=== PATIENT | male | born 1955 | race Caucasian/White ===

== ENCOUNTER 2017-06-12 15:56 | Inpatient (IN) | payer OTHER ==
[2017-06-12 17:14] LABS: BASO % 0.5 % (0.0-1.0); EOS # 0.1 10^3/uL (0.0-0.50); EOS % 1.6 % (0.0-3.0); HEMATOCRIT 46.7 % (42.0-52.0); HEMOGLOBIN 15.5 g/dl (14.0-18.0); IMMATURE GRANULOCYTE # 0.1 10^3/uL (0-0); IMMATURE GRANULOCYTE % 0.8 % (0-0); LYMPH # 1.1 10^3/uL (1.5-4.5); LYMPH % 15.4 % (24.0-44.0); MEAN CORPUSCULAR HEMOGLOBIN 29.8 pg (27.0-33.0); MEAN CORPUSCULAR HGB CONC 33.2 g/dl (32.0-36.5); MEAN CORPUSCULAR VOLUME 89.6 fl (80.0-96.0); MONO # 0.5 10^3/uL (0.0-0.8); MONO % 6.8 % (0.0-5.0); NEUTROPHILS # 5.5 10^3/uL (1.8-7.7); NEUTROPHILS % 74.9 % (36.0-66.0); PLATELET COUNT, AUTOMATED 219 10^3/uL (150-450); RED BLOOD COUNT 5.21 10^6/uL (4.30-6.10); RED CELL DISTRIBUTION WIDTH 12.8 % (11.5-14.5); WHITE BLOOD COUNT 7.4 10^3/uL (4.0-10.0)
[2017-06-12 17:20] LABS: INR 0.96; PROTHROMBIN TIME 12.9 SECONDS (12.4-14.5)
[2017-06-12 17:21] LABS: PARTIAL THROMBOPLASTIN TIME 28.2 SECONDS (26.8-37.9)
[2017-06-12 17:43] LABS: ANION GAP 5 MEQ/L (8-16); BLOOD UREA NITROGEN 21 MG/DL (7-18); CALCIUM LEVEL 9.2 MG/DL (8.8-10.2); CARBON DIOXIDE LEVEL 30 MEQ/L (21-32); CHLORIDE LEVEL 103 MEQ/L (98-107); CREATININE FOR GFR 0.81 MG/DL (0.70-1.30); GLOMERULAR FILTRATION RATE > 60.0 (>49); GLUCOSE, FASTING 280 MG/DL (70-100); POTASSIUM SERUM 4.4 MEQ/L (3.5-5.1); SODIUM LEVEL 138 MEQ/L (136-145)
[2017-06-12] MEDS: PIPERACILLIN/TAZOBACTAM SOD 3.375 GM in APPROPRIATE DILUENT 1 EA IV (18:28)
[2017-06-12] MEDS: METOPROLOL TART 12.5 MG PER 1/2 TAB PO (20:50)
[2017-06-12] MEDS: ATORVASTATIN 20 MG TAB PO (20:50)
[2017-06-12] MEDS: NORCO, ANEXSIA 5/325MG TABLET (HYDROcodone/ACETAMINOPHEN) PO (21:42)
[2017-06-12 22:19] LABS: BEDSIDE GLUCOSE 240 MG/DL (80-115)
[2017-06-13] MEDS: PIPERACILLIN/TAZOBACTAM SOD 3.375 GM in APPROPRIATE DILUENT 1 EA IV ×5 (00:52→23:55)
[2017-06-13] MEDS: NORCO, ANEXSIA 5/325MG TABLET (HYDROcodone/ACETAMINOPHEN) PO ×5 (06:20→23:55)
[2017-06-13] MEDS: CLOPIDOGREL 75 MG TAB PO (08:20)
[2017-06-13] MEDS: METOPROLOL TART 12.5 MG PER 1/2 TAB PO ×2 (08:20→19:49)
[2017-06-13] MEDS: ASPIRIN 81 MG ENTERIC TAB PO (08:20)
[2017-06-13] MEDS: glyBURIDE 5 MG TAB PO ×2 (08:21→17:48)
[2017-06-13] MEDS: OMEPRAZOLE 20 MG CAP PO (08:21)
[2017-06-13] MEDS: metFORMIN (GLUCOPHAGE) 1000 MG TABLET PO ×2 (08:21→17:47)
[2017-06-13] MEDS ORDERED: GLUCOSE 4 GM CHEW TABLET PO (14:00)
[2017-06-13] MEDS ORDERED: GLUCAGON FOR INJ 1 MG VIAL (J1610) SC (14:00)
[2017-06-13 17:05] LABS: BEDSIDE GLUCOSE 196 MG/DL (80-115)
[2017-06-13 17:05] LABS: BEDSIDE GLUCOSE 205 MG/DL (80-115)
[2017-06-13] MEDS: HumaLOG INSULIN (NovoLOG) PER UNIT SC ×2 (17:30→19:50)
[2017-06-13] MEDS: ATORVASTATIN 20 MG TAB PO (19:45)
[2017-06-14 02:38] LABS: BEDSIDE GLUCOSE 177 MG/DL (80-115)
[2017-06-14] MEDS: NORCO, ANEXSIA 5/325MG TABLET (HYDROcodone/ACETAMINOPHEN) PO ×5 (03:35→20:49)
[2017-06-14] MEDS: PIPERACILLIN/TAZOBACTAM SOD 3.375 GM in APPROPRIATE DILUENT 1 EA IV ×4 (05:34→23:38)
[2017-06-14] MEDS: HumaLOG INSULIN (NovoLOG) PER UNIT SC ×4 (07:30→20:10)
[2017-06-14] MEDS: metFORMIN (GLUCOPHAGE) 1000 MG TABLET PO ×2 (08:31→18:13)
[2017-06-14] MEDS: OMEPRAZOLE 20 MG CAP PO (08:31)
[2017-06-14] MEDS: METOPROLOL TART 12.5 MG PER 1/2 TAB PO ×2 (08:31→20:50)
[2017-06-14] MEDS: OMEGA-3 1050MG CAPSULE PO ×2 (08:31→20:47)
[2017-06-14] MEDS: CLOPIDOGREL 75 MG TAB PO (08:32)
[2017-06-14] MEDS: ASPIRIN 81 MG ENTERIC TAB PO (08:32)
[2017-06-14] MEDS: glyBURIDE 5 MG TAB PO ×2 (08:32→18:13)
[2017-06-14 11:39] LABS: BEDSIDE GLUCOSE 142 MG/DL (80-115)
[2017-06-14 17:09] LABS: BEDSIDE GLUCOSE 169 MG/DL (80-115)
[2017-06-14 20:36] LABS: BEDSIDE GLUCOSE 157 MG/DL (80-115)
[2017-06-14] MEDS: ATORVASTATIN 20 MG TAB PO (20:47)
[2017-06-15] MEDS: NORCO, ANEXSIA 5/325MG TABLET (HYDROcodone/ACETAMINOPHEN) PO ×6 (00:42→21:31)
[2017-06-15 04:59] LABS: BEDSIDE GLUCOSE 115 MG/DL (80-115)
[2017-06-15] MEDS: PIPERACILLIN/TAZOBACTAM SOD 3.375 GM in APPROPRIATE DILUENT 1 EA IV ×3 (05:33→17:02)
[2017-06-15] MEDS: metFORMIN (GLUCOPHAGE) 1000 MG TABLET PO ×2 (08:24→17:02)
[2017-06-15] MEDS: OMEGA-3 1050MG CAPSULE PO ×2 (08:24→20:34)
[2017-06-15] MEDS: OMEPRAZOLE 20 MG CAP PO (08:25)
[2017-06-15] MEDS: CLOPIDOGREL 75 MG TAB PO (08:25)
[2017-06-15] MEDS: ASPIRIN 81 MG ENTERIC TAB PO (08:25)
[2017-06-15] MEDS: METOPROLOL TART 12.5 MG PER 1/2 TAB PO ×2 (08:25→20:33)
[2017-06-15] MEDS: glyBURIDE 5 MG TAB PO ×2 (08:25→17:02)
[2017-06-15] MEDS: HumaLOG INSULIN (NovoLOG) PER UNIT SC ×4 (08:26→20:34)
[2017-06-15 14:32] LABS: HEMOGLOBIN 15.5 g/dl (14.0-18.0); MEAN CORPUSCULAR HEMOGLOBIN 29.2 pg (27.0-33.0); MEAN CORPUSCULAR VOLUME 88.7 fl (80.0-96.0); PLATELET COUNT, AUTOMATED 229 10^3/uL (150-450); RED CELL DISTRIBUTION WIDTH 12.6 % (11.5-14.5); WHITE BLOOD COUNT 6.7 10^3/uL (4.0-10.0)
[2017-06-15 14:51] LABS: ANION GAP 7 MEQ/L (8-16); BLOOD UREA NITROGEN 15 MG/DL (7-18); CARBON DIOXIDE LEVEL 30 MEQ/L (21-32); CHLORIDE LEVEL 101 MEQ/L (98-107); CREATININE FOR GFR 0.78 MG/DL (0.70-1.30); GLOMERULAR FILTRATION RATE > 60.0 (>49); GLUCOSE, FASTING 113 MG/DL (70-100); POTASSIUM SERUM 4.4 MEQ/L (3.5-5.1); SODIUM LEVEL 138 MEQ/L (136-145)
[2017-06-15 17:18] LABS: BEDSIDE GLUCOSE 163 MG/DL (80-115)
[2017-06-15] MEDS: ATORVASTATIN 20 MG TAB PO (20:33)
[2017-06-16] MEDS: PIPERACILLIN/TAZOBACTAM SOD 3.375 GM in APPROPRIATE DILUENT 1 EA IV ×3 (00:09→12:33)
[2017-06-16] MEDS: NORCO, ANEXSIA 5/325MG TABLET (HYDROcodone/ACETAMINOPHEN) PO ×2 (04:31→10:24)
[2017-06-16 05:32] LABS: BEDSIDE GLUCOSE 101 MG/DL (80-115)
[2017-06-16 05:32] LABS: BEDSIDE GLUCOSE 106 MG/DL (80-115)
[2017-06-16] MEDS ORDERED: ISOVUE-300 61% 50ML VIAL (Q9967) As Ordered (07:05)
[2017-06-16] MEDS: glyBURIDE 5 MG TAB PO (07:30)
[2017-06-16] MEDS: HumaLOG INSULIN (NovoLOG) PER UNIT SC ×2 (07:30→12:00)
[2017-06-16] MEDS: metFORMIN (GLUCOPHAGE) 1000 MG TABLET PO (08:00)
[2017-06-16] MEDS ORDERED: HEPARIN 1,000 UNITS/ML 10ML VIAL (FOR RADIOLOGY& DIALYSIS ONLY) As Ordered (08:20)
[2017-06-16] MEDS ORDERED: MIDAZOLAM INJ 2 MG/2 ML VIAL (J2250) As Ordered ×2 (08:56→14:41)
[2017-06-16] MEDS ORDERED: fentaNYL 100 MCG/2 ML INJECTION (J3010) As Ordered ×2 (08:56→14:37)
[2017-06-16] MEDS: METOPROLOL TART 12.5 MG PER 1/2 TAB PO (09:00)
[2017-06-16] MEDS: ASPIRIN 81 MG ENTERIC TAB PO (11:11)
[2017-06-16] MEDS: CLOPIDOGREL 75 MG TAB PO (11:12)
[2017-06-16] MEDS: OMEPRAZOLE 20 MG CAP PO (11:12)
[2017-06-16] MEDS: OMEGA-3 1050MG CAPSULE PO (11:12)
[2017-06-16] MEDS: NS 1,000 ML IV (11:34)
[2017-06-16 11:51] LABS: BEDSIDE GLUCOSE 109 MG/DL (80-115)
[2017-06-16 12:24] LABS: BEDSIDE GLUCOSE 104 MG/DL (80-115)
[2017-06-16] MEDS ORDERED: PROPOFOL 200 MG/20 ML VIAL As Ordered (14:37)
[2017-06-16] MEDS ORDERED: LIDOCAINE 2% INJ 100 MG/5 ML SDV (FOR ANES.) As Ordered (14:40)
[2017-06-16] MEDS ORDERED: GLYCOPYRROLATE INJ 0.2 MG/ML 2 ML VIAL As Ordered ×2 (15:23→15:31)
[2017-06-16] MEDS ORDERED: ONDANSETRON 4MG/2ML VIAL (J2405) As Ordered (15:38)
[2017-06-16 16:09] LABS: BEDSIDE GLUCOSE 94 MG/DL (80-115)
[2017-06-16] MEDS ORDERED: PERCOCET 5MG/325MG TAB PO (16:15)
[2017-06-16] MEDS ORDERED: ONDANSETRON 4MG/2ML VIAL (J2405) IV (16:15)
[2017-06-16] MEDS ORDERED: LR 1,000 ML IV (16:15)
[2017-06-16] MEDS ORDERED: fentaNYL 100 MCG/2 ML INJECTION (J3010) IV (16:15)
[2017-06-16 17:26] LABS: BEDSIDE GLUCOSE 93 MG/DL (80-115)
== END 2017-06-16 18:25 | disposition home or self-care (01) | DRG 314 ==
LOC: M MS5PR 15:56
PROC: 0Y6Q0Z0 Detachment at Left 1st Toe, Complete, Open Approach (ICD-10-PCS; principal; 2017-06-16 09:31)
PROC: 0KBW0ZZ Excision of Left Foot Muscle, Open Approach (ICD-10-PCS; 2017-06-16 09:31)
PROC: B40DYZZ Plain Radiography of Aorta and Bilateral Lower Extremity Arteries using Other Contrast (ICD-10-PCS; 2017-06-16 09:31)
DX: E11.52 Type 2 diabetes mellitus with diabetic peripheral angiopathy with gangrene (principal); E11.42 Type 2 diabetes mellitus with diabetic polyneuropathy; E11.621 Type 2 diabetes mellitus with foot ulcer; I70.262 Atherosclerosis of native arteries of extremities with gangrene, left leg; L03.116 Cellulitis of left lower limb; L97.524 Non-pressure chronic ulcer of other part of left foot with necrosis of bone; F17.210 Nicotine dependence, cigarettes, uncomplicated; I83.93 Asymptomatic varicose veins of bilateral lower extremities; Z79.82 Long term (current) use of aspirin; Z79.84 Long term (current) use of oral hypoglycemic drugs; Z89.422 Acquired absence of other left toe(s); Z79.899 Other long term (current) drug therapy

== ENCOUNTER → 2017-06-12 | Outpatient (REF) | payer OTHER ==
[2017-06-16 11:39] LABS: BEDSIDE GLUCOSE 150 MG/DL (80-115)
== END ==
LOC: M LAB REF 19:59
DX: E11.621 Type 2 diabetes mellitus with foot ulcer (principal)

== ENCOUNTER 2018-02-23 12:14 | Inpatient (IN) | payer OTHER ==
[2018-02-23 12:43] LABS: BASO % 0.4 % (0.0-1.0); EOS # 0.1 10^3/uL (0.0-0.50); EOS % 1.7 % (0.0-3.0); HEMATOCRIT 51.4 % (42.0-52.0); HEMOGLOBIN 17.2 g/dl (13.5-17.5); IMMATURE GRANULOCYTE % 0.4 % (0-3.0); LYMPH # 1.2 10^3/uL (1.5-4.5); LYMPH % 14.4 % (24.0-44.0); MEAN CORPUSCULAR HEMOGLOBIN 31.1 pg (27.0-33.0); MEAN CORPUSCULAR HGB CONC 33.5 g/dl (32.0-36.5); MEAN CORPUSCULAR VOLUME 92.9 fl (80.0-96.0); MONO # 0.8 10^3/uL (0.0-0.8); MONO % 9.7 % (0.0-5.0); NEUTROPHILS % 73.4 % (36.0-66.0); PLATELET COUNT, AUTOMATED 175 10^3/uL (150-450); RED BLOOD COUNT 5.53 10^6/uL (4.30-6.10); RED CELL DISTRIBUTION WIDTH 13.1 % (11.5-14.5); WHITE BLOOD COUNT 8.2 10^3/uL (4.0-10.0)
[2018-02-23 13:09] LABS: ANION GAP 5 MEQ/L (8-16); BLOOD UREA NITROGEN 14 MG/DL (7-18); CALCIUM LEVEL 9.4 MG/DL (8.8-10.2); CARBON DIOXIDE LEVEL 30 MEQ/L (21-32); CHLORIDE LEVEL 103 MEQ/L (98-107); CREATININE FOR GFR 0.75 MG/DL (0.70-1.30); GLOMERULAR FILTRATION RATE > 60.0 (>49); GLUCOSE, FASTING 163 MG/DL (70-100); POTASSIUM SERUM 4.6 MEQ/L (3.5-5.1); SODIUM LEVEL 138 MEQ/L (136-145)
[2018-02-23] MEDS ORDERED: BISACODYL 5 MG TAB PO (14:45)
[2018-02-23] MEDS ORDERED: ONDANSETRON 4MG/2ML VIAL (J2405) IV ×2 (14:45→18:45)
[2018-02-23] MEDS ORDERED: GLUCAGON FOR INJ 1 MG VIAL (J1610) SC (15:15)
[2018-02-23] MEDS ORDERED: GLUCOSE 4 GM CHEW TABLET PO (15:15)
[2018-02-23] MEDS ORDERED: DEXTROSE 50% 50 ML SYRINGE IV (15:15)
[2018-02-23] MEDS: NS 1,000 ML IV (16:00)
[2018-02-23] MEDS: HumaLOG INSULIN (NovoLOG) PER UNIT SC ×2 (17:30→20:27)
[2018-02-23] MEDS ORDERED: VANCOMYCIN 1000 MG/20 ML VIAL (J3370) As Ordered (18:05)
[2018-02-23] MEDS: BUPIVACAINE HCL 0.5% 10 ML VIAL As Ordered (18:05)
[2018-02-23] MEDS: LIDOCAINE 1% MDV 20ML VIAL As Ordered (18:05)
[2018-02-23] MEDS: VANCOMYCIN HCL 1,000 MG, VIAL MATE ADAPTER 1 EACH in D5W 250 ML IV ×2 (18:15→20:32)
[2018-02-23] MEDS ORDERED: MIDAZOLAM INJ 2 MG/2 ML VIAL (J2250) As Ordered (18:22)
[2018-02-23] MEDS ORDERED: LIDOCAINE 2% INJ 100 MG/5 ML SDV (FOR ANES.) As Ordered (18:22)
[2018-02-23] MEDS ORDERED: fentaNYL 100 MCG/2 ML INJECTION (J3010) As Ordered (18:22)
[2018-02-23] MEDS ORDERED: PROPOFOL 200 MG/20 ML VIAL As Ordered (18:22)
[2018-02-23] MEDS ORDERED: fentaNYL 100 MCG/2 ML INJECTION (J3010) IV (18:45)
[2018-02-23] MEDS ORDERED: LR 1,000 ML IV (18:45)
[2018-02-23 20:23] LABS: BEDSIDE GLUCOSE 188 MG/DL (80-115)
[2018-02-23] MEDS: ENOXAPARIN 40 MG/0.4 ML SYRINGE (J1650) SC (20:31)
[2018-02-23] MEDS: CLOPIDOGREL 75 MG TAB PO (20:31)
[2018-02-23] MEDS: ATORVASTATIN 20 MG TAB PO (20:31)
[2018-02-23] MEDS: SENOKOT S TAB PO (20:31)
[2018-02-23] MEDS: ASPIRIN 81 MG ENTERIC TAB PO (20:31)
[2018-02-23] MEDS: METOPROLOL TART 25 MG TABLET PO (20:32)
[2018-02-23] MEDS: OMEPRAZOLE 20 MG CAP PO (20:32)
[2018-02-23] MEDS: PERCOCET 5MG/325MG TAB PO (20:35)
[2018-02-23] MEDS: glyBURIDE 2.5 MG TAB PO (20:36)
[2018-02-24] MEDS: VANCOMYCIN HCL 1,000 MG, VIAL MATE ADAPTER 1 EACH in D5W 250 ML IV ×3 (03:11→18:13)
[2018-02-24 06:03] LABS: BASO % 0.6 % (0.0-1.0); EOS # 0.2 10^3/uL (0.0-0.50); EOS % 3.1 % (0.0-3.0); HEMATOCRIT 45.2 % (42.0-52.0); IMMATURE GRANULOCYTE % 0.6 % (0-3.0); LYMPH # 1.5 10^3/uL (1.5-4.5); LYMPH % 21.2 % (24.0-44.0); MEAN CORPUSCULAR HEMOGLOBIN 30.8 pg (27.0-33.0); MEAN CORPUSCULAR HGB CONC 33.6 g/dl (32.0-36.5); MEAN CORPUSCULAR VOLUME 91.7 fl (80.0-96.0); MONO # 0.8 10^3/uL (0.0-0.8); MONO % 10.4 % (0.0-5.0); NEUTROPHILS # 4.6 10^3/uL (1.8-7.7); NEUTROPHILS % 64.1 % (36.0-66.0); PLATELET COUNT, AUTOMATED 164 10^3/uL (150-450); RED BLOOD COUNT 4.93 10^6/uL (4.30-6.10); RED CELL DISTRIBUTION WIDTH 12.9 % (11.5-14.5); WHITE BLOOD COUNT 7.2 10^3/uL (4.0-10.0)
[2018-02-24 06:23] LABS: ANION GAP 4 MEQ/L (8-16); BLOOD UREA NITROGEN 9 MG/DL (7-18); C REACTIVE PROTEIN QUANTITATIV 2.65 MG/DL (0.00-0.30); CALCIUM LEVEL 8.4 MG/DL (8.8-10.2); CARBON DIOXIDE LEVEL 30 MEQ/L (21-32); CHLORIDE LEVEL 104 MEQ/L (98-107); CREATININE FOR GFR 0.62 MG/DL (0.70-1.30); GLOMERULAR FILTRATION RATE > 60.0 (>49); GLUCOSE, FASTING 99 MG/DL (70-100); POTASSIUM SERUM 3.9 MEQ/L (3.5-5.1); SODIUM LEVEL 138 MEQ/L (136-145)
[2018-02-24 06:52] LABS: HEMOGLOBIN 15.2 g/dl (13.5-17.5)
[2018-02-24] MEDS: HumaLOG INSULIN (NovoLOG) PER UNIT SC ×4 (07:30→20:40)
[2018-02-24] MEDS: SENOKOT S TAB PO ×2 (09:35→21:28)
[2018-02-24] MEDS: glyBURIDE 2.5 MG TAB PO ×2 (09:35→18:14)
[2018-02-24] MEDS: ASPIRIN 81 MG ENTERIC TAB PO (09:35)
[2018-02-24] MEDS: CLOPIDOGREL 75 MG TAB PO (09:35)
[2018-02-24] MEDS: OMEPRAZOLE 20 MG CAP PO (09:36)
[2018-02-24] MEDS: METOPROLOL TART 25 MG TABLET PO ×2 (09:37→21:27)
[2018-02-24 11:58] LABS: BEDSIDE GLUCOSE 210 MG/DL (80-115)
[2018-02-24] MEDS: PERCOCET 5MG/325MG TAB PO ×2 (12:00→18:17)
[2018-02-24 14:00] LABS: URIC ACID 4.3 MG/DL (3.5-7.2)
[2018-02-24 16:59] LABS: BEDSIDE GLUCOSE 251 MG/DL (80-115)
[2018-02-24 17:37] LABS: VANCOMYCIN LEVEL TROUGH 10.3 UG/ML (10.0-20.0)
[2018-02-24 20:31] LABS: BEDSIDE GLUCOSE 231 MG/DL (80-115)
[2018-02-24] MEDS: VANCOMYCIN HCL 500 MG in D5W MINI-BAG PLUS 100 ML IV (21:26)
[2018-02-24] MEDS: ACETAMINOPHEN 500 MG TAB PO (21:27)
[2018-02-24] MEDS: ATORVASTATIN 20 MG TAB PO (21:27)
[2018-02-24] MEDS: ENOXAPARIN 40 MG/0.4 ML SYRINGE (J1650) SC (21:28)
[2018-02-25] MEDS: VANCOMYCIN HCL 1,000 MG, VIAL MATE ADAPTER 1 EACH in D5W 250 ML IV ×3 (01:41→18:08)
[2018-02-25] MEDS: VANCOMYCIN HCL 500 MG in D5W MINI-BAG PLUS 100 ML IV ×3 (03:13→20:24)
[2018-02-25] MEDS: PERCOCET 5MG/325MG TAB PO ×3 (05:08→20:20)
[2018-02-25] MEDS: SENOKOT S TAB PO ×2 (07:19→20:18)
[2018-02-25 07:29] LABS: BEDSIDE GLUCOSE 162 MG/DL (80-115)
[2018-02-25] MEDS: ASPIRIN 81 MG ENTERIC TAB PO (09:35)
[2018-02-25] MEDS: CLOPIDOGREL 75 MG TAB PO (09:36)
[2018-02-25] MEDS: OMEPRAZOLE 20 MG CAP PO (09:36)
[2018-02-25] MEDS: glyBURIDE 2.5 MG TAB PO ×2 (09:36→18:07)
[2018-02-25] MEDS: HumaLOG INSULIN (NovoLOG) PER UNIT SC ×4 (09:37→20:24)
[2018-02-25] MEDS: METOPROLOL TART 25 MG TABLET PO ×2 (09:37→20:18)
[2018-02-25] MEDS ORDERED: ISOVUE-370 76% 100ML VIAL (Q9967) As Ordered (11:34)
[2018-02-25 11:58] LABS: BEDSIDE GLUCOSE 215 MG/DL (80-115)
[2018-02-25 17:02] LABS: BEDSIDE GLUCOSE 194 MG/DL (80-115)
[2018-02-25 17:54] LABS: VANCOMYCIN LEVEL TROUGH 16.6 UG/ML (10.0-20.0)
[2018-02-25 20:04] LABS: BEDSIDE GLUCOSE 204 MG/DL (80-115)
[2018-02-25] MEDS: ATORVASTATIN 20 MG TAB PO (20:19)
[2018-02-25] MEDS: ENOXAPARIN 40 MG/0.4 ML SYRINGE (J1650) SC (21:00)
[2018-02-26] MEDS: VANCOMYCIN HCL 500 MG in D5W MINI-BAG PLUS 100 ML IV ×2 (02:53→11:00)
[2018-02-26] MEDS: VANCOMYCIN HCL 1,000 MG, VIAL MATE ADAPTER 1 EACH in D5W 250 ML IV ×2 (02:53→10:20)
[2018-02-26] MEDS: PERCOCET 5MG/325MG TAB PO (04:04)
[2018-02-26 06:23] LABS: BEDSIDE GLUCOSE 223 MG/DL (80-115)
[2018-02-26] MEDS: OMEPRAZOLE 20 MG CAP PO (08:12)
[2018-02-26] MEDS: SENOKOT S TAB PO (08:12)
[2018-02-26] MEDS: CLOPIDOGREL 75 MG TAB PO (08:12)
[2018-02-26] MEDS: METOPROLOL TART 25 MG TABLET PO (08:12)
[2018-02-26] MEDS: ASPIRIN 81 MG ENTERIC TAB PO (08:12)
[2018-02-26] MEDS: glyBURIDE 2.5 MG TAB PO (08:13)
[2018-02-26] MEDS: HumaLOG INSULIN (NovoLOG) PER UNIT SC ×2 (08:13→12:00)
[2018-02-26 08:33] LABS: ANION GAP 6 MEQ/L (8-16); BLOOD UREA NITROGEN 11 MG/DL (7-18); CALCIUM LEVEL 8.9 MG/DL (8.8-10.2); CARBON DIOXIDE LEVEL 30 MEQ/L (21-32); CHLORIDE LEVEL 105 MEQ/L (98-107); CREATININE FOR GFR 0.74 MG/DL (0.70-1.30); GLOMERULAR FILTRATION RATE > 60.0 (>49); GLUCOSE, FASTING 200 MG/DL (70-100); POTASSIUM SERUM 4.2 MEQ/L (3.5-5.1); SODIUM LEVEL 141 MEQ/L (136-145)
== END 2018-02-26 12:51 | disposition home or self-care (01) | DRG 314 ==
LOC: M ED 12:14 → M ED INP 14:40 → M MSPAV 19:12
PROC: 0Y6V0Z0 Detachment at Right 4th Toe, Complete, Open Approach (ICD-10-PCS; principal; 2018-02-23 17:00)
DX: E11.52 Type 2 diabetes mellitus with diabetic peripheral angiopathy with gangrene (principal); E11.42 Type 2 diabetes mellitus with diabetic polyneuropathy; E78.5 Hyperlipidemia, unspecified; I25.10 Atherosclerotic heart disease of native coronary artery without angina pectoris; I10 Essential (primary) hypertension; K21.9 Gastro-esophageal reflux disease without esophagitis; L03.031 Cellulitis of right toe; F17.210 Nicotine dependence, cigarettes, uncomplicated; B95.8 Unspecified staphylococcus as the cause of diseases classified elsewhere; I25.2 Old myocardial infarction; Z95.5 Presence of coronary angioplasty implant and graft; Z89.412 Acquired absence of left great toe; Z79.82 Long term (current) use of aspirin; Z79.02 Long term (current) use of antithrombotics/antiplatelets; Z79.899 Other long term (current) drug therapy; Z79.84 Long term (current) use of oral hypoglycemic drugs

== ENCOUNTER → 2018-03-09 | Outpatient (REF) | payer OTHER | LOC: M LAB REF 12:35 | DX: E11.621 Type 2 diabetes mellitus with foot ulcer (principal) ==

== ENCOUNTER → 2018-04-13 | Outpatient (CLI) | payer OTHER ==
[~2018-04-13] MED LIST: HEPARIN 1,000 UNITS/ML 10ML VIAL (FOR RADIOLOGY& DIALYSIS ONLY) As Ordered; ISOVUE-300 61% 50ML VIAL (Q9967) As Ordered; LIDOCAINE 2% MDV 20 ML VIAL As Ordered; MIDAZOLAM INJ 2 MG/2 ML VIAL (J2250) As Ordered; fentaNYL 100 MCG/2 ML INJECTION (J3010) As Ordered
== END | disposition home or self-care (01) ==
LOC: M IRPRO 08:13
DX: I70.203 Unspecified atherosclerosis of native arteries of extremities, bilateral legs (principal); T81.89XA Other complications of procedures, not elsewhere classified, initial encounter; Z72.0 Tobacco use
CPT/HCPCS: 36247